=== PATIENT | male | born 1950 | race Hispanic/Latino ===

== ENCOUNTER 2017-08-12 20:27 | Inpatient (IN) | payer MEDICARE, BC ==
[2017-08-12 20:43] VITALS: BMI 28.1
--- NOTE | 2017-08-12 21:13 | ED PDOC ---
Arrival/HPI - General Chief Complaint: Trauma Time Seen by Provider: 08/12/17 20:35 Historian: Patient - History of Present Illness Narrative History of Present Illness (Text): 08/12/17 21:23 A 66 year old male, whose past medical history includes Crohn's disease, presents to the emergency department complaining of right hip pain s/p fall at home. Patient reports he was lifting his right leg from the garbage can and fell on his right side. Denies hitting his head. Denies any history of cardiac disease. Patient denies any b/l knee pain, ankle pain, rib pain, abdominal pain , or any other complaints at this time. Admits to drinking alcohol, last drink was today. PMD: Dr. Chahal Ortho: Dr. Vick Ditch Digger: Dr. Moreno Symptom Onset: Sudden Symptom Course: Unchanged Activities at Onset: Rest Context: Home Past Medical History - Provider Review Nursing Documentation Reviewed: Yes - Infectious Disease Hx of Infectious Diseases: None - Gastrointestinal Hx Gastrointestinal Disorders: Yes Other/Comment: crohn's. IBS - Psychiatric Hx Substance Use: No - Surgical History Hx Appendectomy: Yes - Anesthesia Hx Anesthesia: Yes Hx Anesthesia Reactions: No Hx Malignant Hyperthermia: No Family/Social History - Physician Review Nursing Documentation Reviewed: Yes Family/Social History: No Known Family HX Smoking Status: Never Smoked Hx Alcohol Use: Yes Frequency of alcohol use: Few days per week Hx Substance Use: No Allergies/Home Meds Allergies/Adverse Reactions: Allergies No Known Allergies Allergy (Verified 08/12/17 20:36) Home Medications: Home Meds Medication Instructions Recorded Confirmed Folic Acid [Folic Acid] 1 tab PO DAILY 08/12/17 08/12/17 Mercaptopurine [6-Mp] 2 tab PO DAILY 08/12/17 08/12/17 Mesalamine [Lialda] 4 tab PO DAILY 08/12/17 08/12/17 Review of Systems - Physician Review All systems were reviewed & negative as marked: Yes - Review of Systems Gastrointestinal: absent: Abdominal Pain Musculoskeletal: Other (right hip pain; no rib pain, no knee pain, no ankle pain ) Physical Exam - Physical Exam Narrative Physical Exam (Text): 08/12/17 21:16 Head: Atraumatic. Normocephalic. Eyes: PERRL. EOMI. Conjunctivae are not pale. ENT: Mucous membranes are moist and intact. Oropharynx is clear and symmetric. Neck: Supple. Full ROM. No JVD. No lymphadenopathy. Cardiovascular: Regular rate. Regular rhythm. No murmurs, rubs, or gallops. Distal pulses are 2+ and symmetric. Pulmonary/Chest: No evidence of respiratory distress. Clear to auscultation bilaterally. No wheezing, rales or rhonchi. Abdominal: Soft and non-distended. There is no tenderness. No rebound, guarding, or rigidity. No organomegaly. Good bowel sounds. Back: No CVA tenderness. Extremities: pain with palpation of right hip and with passive rotation of right hip Skin: Skin is warm and dry. No petechiae. No purpura. Neurological: Alert, awake, and oriented to person, place, time, and situation. Normal speech. Psychiatric: Good eye contact. Normal interaction, affect, and behavior. Vital Signs Reviewed: Yes Vital Signs Pulse Resp BP 08/12/17 22:52 82 18 08/12/17 22:21 84 16 135/70 Appearance: Positive for: Well-Appearing, Non-Toxic, Comfortable Pain Distress: Mild Mental Status: Positive for: Alert and Oriented X 3 Medical Decision Making ED Course and Treatment: 08/12/17 21:01 Impression: A 66 year old male with right hip pain s/p fall. Plan: -- EKG -- Radiology right hip -- chest xray -- labs -- Reassess and disposition Progress Notes: Patient with pain on palpation and ROM of hip. NV intact. Denies head injury. Denies chest pain or shortness of breath. Denies neck pain or back pain. Patient on examination had iv line established, pain meds ordered. Xray reveals right hip fracture. On re-evaluation, he is nv intact. Pain improved after morphine. Patient currently denies abdominal pain or any knee or ankle pain. Serial neuro exams he is intact. Case d/w Dr. Barry Chahal at 10:51, requests Dr. Duron for orthopedics. Will also consult Dr. Paramjit Moreno, his gi physician. Patient updated with treatment plan. - Lab Interpretations Lab Results: 08/12/17 21:30 08/12/17 21:30 Lab Results 08/12/17 21:30: Alcohol, Quantitative 80 H 08/12/17 21:30: PT 14.3 H, INR 1.25 H, APTT 30.7 08/12/17 21:30: Sodium 131 L, Potassium 4.0, Chloride 93 L, Carbon Dioxide 24, Anion Gap 18, BUN 14, Creatinine 0.8, Est GFR ( Amer) > 60, Est GFR (Non- Af Amer) > 60, Random Glucose 92, Calcium 9.4, Magnesium 1.8, Total Bilirubin 2.0 H, AST 31, ALT 30, Alkaline Phosphatase 50, Total Protein 6.9, Albumin 3.9, Globulin 3.0, Albumin/Globulin Ratio 1.3 08/12/17 21:30: WBC 11.6 H, RBC 3.88, Hgb 13.3 L, Hct 37.7 L, MCV 97.2, MCH 34.3 , MCHC 35.3, RDW 15.4 H, Plt Count 229, MPV 10.3, Gran % 87.0 H, Lymph % (Auto) 8.1 L, [place] % (Auto) 4.4, Eos % (Auto) 0.4 L, Baso % (Auto) 0.1, Gran # 10.05 H , Lymph # (Auto) 0.9 L, [place] # (Auto) 0.5, Eos # (Auto) 0.1, Baso # (Auto) 0.01 I have reviewed the lab results: Yes - RAD Interpretation Radiology Orders: 08/12/17 21:03 CHEST ONE VIEW [RAD] Stat 08/12/17 21:04 Hip Right [HIP MIN 2V W/ PELVIS RT] [RAD] Stat - EKG Interpretation EKG Interpretation (Text): 08/12/17 23:04 EKG normal sinus rhythm rate of [address] elevations Interpreted by ED Physician: Yes Type: 12 lead EKG - Medication Orders Current Medication Orders: Discontinued Medications Sodium Chloride (Sodium Chloride 0.9%) 500 mls @ 1,000 mls/hr IV .Q30M STA Stop: 08/12/17 22:48 Last Admin: 08/12/17 22:34 Dose: 1,000 mls/hr eMAR Start Stop Document 08/12/17 22:34 MS (Rec: 08/12/17 22:34 MS [facility] [id number]) Intravenous Solution Start Date 08/12/17 Start Time 22:34 Morphine Sulfate (Morphine) 2 mg IVP STAT STA Stop: 08/12/17 22:20 Last Admin: 08/12/17 22:34 Dose: 2 mg MAR Pain Assessment Document 08/12/17 22:34 MS (Rec: 08/12/17 22:34 MS [facility] [id number]) Pain Reassessment Is this a pain reassessment? No Sleep Is patient sleeping during reassessment? No Presence of Pain Presence of Pain Yes Pain Scale Used Pain Scale Used Numeric Location Pain Location Body Site Hip Description Description Constant Intensity of Pain at present 10 Pain Behavior Moaning Grasping Site IVP Administration Document 08/12/17 22:34 MS (Rec: 08/12/17 22:34 MS [facility] [id number]) Charges for Administration # of IVP Administrations 1 - Scribe Statement The provider has reviewed the documentation as recorded by the Hiren Christian Provider Scribe Attestation: All medical record entries made by the Scribe were at my direction and personally dictated by me. I have reviewed the chart and agree that the record accurately reflects my personal performance of the history, physical exam, medical decision making, and the department course for this patient. I have also personally directed, reviewed, and agree with the discharge instructions and disposition. Disposition/Present on Arrival - Present on Arrival Any Indicators Present on Arrival: No History of DVT/PE: No History of Uncontrolled Diabetes: No Urinary Catheter: No History of Decub. Ulcer: No History Surgical Site Infection Following: None - Disposition Have Diagnosis and Disposition been Completed?: Yes Diagnosis: Fracture of right hip Disposition: HOSPITALIZED Disposition Time: 22:52 Patient Plan: Admission, Telemetry Patient Problems: Current Active Problems Problem Status Onset Fracture of right hip Acute Condition: FAIR Referrals: Tirso HERMAN,Giovani Cummings MD [Primary Care Provider] - Follow up with primary Forms: [employer] ([place]ian)
[2017-08-12 21:49] LABS: BASO # 0.01 K/mm3 (0.0-2.0); BASO % 0.1 % (0.0-3.0); EOS # 0.1 (0.0-0.7); EOS % 0.4 % (1.5-5.0); GRAN # 10.05 (1.4-6.5); HEMOGLOBIN 13.3 g/dL (14.0-18.0); LYMPH # 0.9 (1.2-3.4); LYMPH % 8.1 % (22.0-35.0); MEAN CELL VOLUME 97.2 fl (80.0-105.0); MEAN CORPUSCULAR HEMOGLOBIN 34.3 pg (25.0-35.0); MEAN CORPUSCULAR HGB CONC 35.3 g/dl (31.0-37.0); MEAN PLATELET VOLUME 10.3 fl (7.0-11.0); MONO # 0.5 (0.1-0.6); MONO % 4.4 % (1.0-6.0); RBC 3.88 10^6/uL (3.5-6.1); RED CELL DISTRIBUTION WIDTH 15.4 % (11.5-14.5); WHITE BLOOD COUNT 11.6 10^3/ul (4.5-11.0)
[2017-08-12 21:52] LABS: ALB/GLOB RATIO 1.3 (1.1-1.8); ALBUMIN 3.9 g/dL (3.0-4.8); ALT/SGPT 30 U/L (7-56); AST/SGOT 31 U/L (17-59); BLOOD UREA NITROGEN 14 mg/dL (7-21); CALCIUM 9.4 mg/dL (8.4-10.5); GFR AFRICAN-AMERICAN > 60; GFR NON-AFRICAN AMERICAN > 60; INR 1.25 (0.93-1.08); MAGNESIUM 1.8 mg/dL (1.7-2.2); PARTIAL THROMBOPLASTIN TIME 30.7 Seconds (25.1-36.5); PROTHROMBIN TIME 14.3 SECONDS (9.4-12.5)
[2017-08-12] MEDS ORDERED: Morphine 2 mg/ml ISec IVP STA (22:19)
[2017-08-12] MEDS ORDERED: Sodium Chloride 0.9% 500 ML IV STA (22:19)
[2017-08-13] MEDS ORDERED: Dextrose 5%/0.45% NS 1,000 ML IV SCH (03:45)
[2017-08-13] MEDS ORDERED: Folic Acid 1 MG, Thiamine 100 MG, Multivitamin (MVI) 10 ML in Dextrose 5% In Water 1,00... IV SCH (04:00)
[2017-08-13] MEDS: Morphine 2 mg/ml ISec IVP PRN ×2 (04:17→08:51)
--- NOTE | 2017-08-13 04:59 | CP.PCM.PN ---
Subjective - Date & Time of Evaluation Date of Evaluation: 08/13/17 Time of Evaluation: 04:00 - Subjective Subjective: called by nurse pt new admission for rt hip fracture is vomiting . pt has hx of etoh . pt is also shaking. Objective - Vital Signs/Intake and Output Vital Signs (last 24 hours): Temp Pulse Resp BP Pulse Ox 97.9 F 95 H 16 137/83 98 08/13/17 01:16 08/13/17 03:01 08/13/17 03:01 08/13/17 03:01 08/13/17 03:01 - Medications Medications: Current Medications Dextrose/Sodium Chloride (Dextrose 5%/0.45% Ns 1000 Ml) 1,000 mls @ 50 mls/hr IV .Q20H [facility] Last Admin: 08/13/17 03:49 Dose: 50 mls/hr Folic Acid 1 mg/ Thiamine HCl 100 mg/ Multivitamins/Vitamin C 10 ml/ Dextrose 1 ,011.2 mls @ 100 mls/hr IV .Q10H7M [facility] Stop: 08/13/17 14:06 Morphine Sulfate (Morphine) 2 mg IVP Q4 PRN PRN Reason: Pain, severe (8-10) Last Admin: 08/13/17 04:17 Dose: 2 mg - Labs Labs: PT 14.3 SECONDS (9.4-12.5) H 08/12/17 21:30 INR 1.25 (0.93-1.08) H 08/12/17 21:30 APTT 30.7 Seconds (25.1-36.5) 08/12/17 21:30 - Constitutional Appears: No Acute Distress - Head Exam Head Exam: NORMOCEPHALIC - Eye Exam Eye Exam: Normal appearance Pupil Exam: PERRL - Neck Exam Neck Exam: Full ROM - Respiratory Exam Respiratory Exam: NORMAL BREATHING PATTERN - Cardiovascular Exam Cardiovascular Exam: RRR, +S1, +S2 - GI/Abdominal Exam GI & Abdominal Exam: Soft - Rectal Exam Rectal Exam: Deferred - Extremities Exam Additional comments: rt lower extremity reluctant to move. - Neurological Exam Neurological Exam: Awake, Oriented x3 - Psychiatric Exam Psychiatric exam: Anxious - Skin Skin Exam: Dry, Warm Assessment and Plan - Assessment and Plan (Free Text) Assessment: alcohol withdrawl .vomiting. rt hip fracture. Plan: zofran 4 mg x1. ativan ativan 1 mg x1. bana bag.
--- NOTE | 2017-08-13 09:46 | RAD ---
PROCEDURE: CHEST RADIOGRAPH, 1 VIEW HISTORY: possible hip fracture COMPARISON: None available. FINDINGS: LUNGS: Clear. PLEURA: No pneumothorax or pleural fluid seen. CARDIOVASCULAR: No radiographic findings to suggest acute or significant cardiovascular disease. OSSEOUS STRUCTURES: No significant abnormalities. VISUALIZED UPPER ABDOMEN: Normal. OTHER FINDINGS: None. IMPRESSION: No active disease.
--- NOTE | 2017-08-13 09:46 | RAD ---
PROCEDURE: Right hip HISTORY: right hip fracture COMPARISON: None TECHNIQUE: Standard protocol for this study/examination. FINDINGS: Inter trochanteric fracture. Avulsion of the greater trochanter is incompletely visualized. Preservation of femoral acetabular relationship on the right. No pelvic ring abnormalities. Left hip: No acute findings. IMPRESSION: Acute inter trochanteric fracture with avulsion of greater trochanter.
[2017-08-13] MEDS ORDERED: Propofol 10 mg/ml Inj (20 ML) ONE ×2 (10:45→10:47)
[2017-08-13] MEDS ORDERED: Midazolam 2 MG/2 ML VIAL ONE ×2 (10:57→11:49)
[2017-08-13] MEDS ORDERED: Neostigmine Methylsulfate 3mg/3ml Syringe IV ONE (11:48)
[2017-08-13] MEDS ORDERED: ePHEDrine 50 mg/ml Inj ONE (11:54)
[2017-08-13] MEDS ORDERED: HYDROmorphone 0.5 mg/0.5 ml ISec IVP PRN (12:27)
[2017-08-13] MEDS: HYDROmorphone 0.5 mg/0.5 ml ISec IVP PRN ×2 (13:27→16:57)
--- NOTE | 2017-08-13 13:29 | RAD ---
PROCEDURE: Fluoroscopy up to 1 hr. HISTORY: ORIF RT HIP COMPARISON: None TECHNIQUE: Standard protocol for this study/examination. FINDINGS: Total fluoroscopic time (continuous mode) utilized during the procedure: 44.9 seconds. Total exam DLP: 7.50 (mGy) IMPRESSION: Less than 1 hr fluoroscopic time utilized during performance of the procedure.
[2017-08-13 13:35] LABS: BASO # 0.01 K/mm3 (0.0-2.0); BASO % 0.2 % (0.0-3.0); EOS # 0.2 (0.0-0.7); EOS % 2.5 % (1.5-5.0); GRAN # 4.92 (1.4-6.5); GRAN % 76.4 % (50.0-68.0); HEMOGLOBIN 12.2 g/dL (14.0-18.0); LYMPH % 16.2 % (22.0-35.0); MEAN CORPUSCULAR HEMOGLOBIN 34.6 pg (25.0-35.0); MEAN CORPUSCULAR HGB CONC 35.3 g/dl (31.0-37.0); MEAN PLATELET VOLUME 10.6 fl (7.0-11.0); MONO # 0.3 (0.1-0.6); MONO % 4.7 % (1.0-6.0); RBC 3.53 10^6/uL (3.5-6.1); RED CELL DISTRIBUTION WIDTH 15.3 % (11.5-14.5); WHITE BLOOD COUNT 6.4 10^3/ul (4.5-11.0)
[2017-08-13] MEDS ORDERED: Multivitamin (MVI) 10 ML, Thiamine 100 MG, Folic Acid 1 MG in Sodium Chloride 0.9% 1,00... IV ONE (16:00)
[2017-08-13] MEDS: ceFAZolin 1 gm in NS 1 GM/100 ML BAG IVPB SCH ×2 (16:18→21:38)
--- NOTE | 2017-08-13 16:46 | CARD ---
APPROVED REPORT EKG Measurement Heart [id number] <Conclusion> Normal sinus rhythm Normal ECG
[2017-08-13] MEDS ORDERED: Pneumococcal 23-Valent Vaccine IM ONE (17:11)
[2017-08-13] MEDS ORDERED: Influenza Vaccine 60 mcg/0.5 mL SYR (4YR UP) IM ONE (17:11)
--- NOTE | 2017-08-13 20:57 | HP ---
HISTORY OF PRESENT ILLNESS: The patient is a 66 year old man with a past medical history of ulcerative colitis who presented to [facility] for evaluation of a sudden onset of right hip pain after sustaining a mechanical fall at home. The patient reports that he was in his usual state of health until the day of presentation to the ED when he was lifting his right leg into his garbage can so as to compress the garbage when he slipped and sustained a mechanical fall. The patient reports he felt a crack to his right hip with an immediate onset of sharp, stabbing pain and inability to bear weight. He called 911 and was brought to [facility] ED for evaluation where imaging studies demonstrated a right hip fracture with minimal displacement. He was then admitted for orthopedic repair. PAST MEDICAL HISTORY: As per HPI, also EtOH dependence. PAST SURGICAL HISTORY: Gastric biopsy, repair of detached retina and appendectomy. ALLERGIES: NKDA. MEDICATIONS: 6-mercaptopurine 50 mg 2 tablets p.o. daily, folic acid 1 mg p.o. daily, and Lialda 1.2 g 4 tablets p.o. daily. FAMILY HISTORY: Noncontributory. SOCIAL HISTORY: The patient denies any history of smoking or illicit drug abuse. He does report daily alcohol use consisting of 2-3 beers daily. REVIEW OF SYSTEMS: Negative for chest pain, palpitations, orthopnea, lower extremity edema, claudication, presyncope, or syncope. PHYSICAL EXAMINATION: VITAL SIGNS: Temperature 97.9, pulse 89, blood pressure 145/75, respiratory rate 16, and oxygen saturation 99% on room air. GENERAL: Mild distress secondary to right hip pain. HEENT: PERRL. EOMI. No scleral icterus. NECK: Supple. Full range of motion. LUNGS: Clear to auscultation. CARDIOVASCULAR: Regular rate and rhythm. Normal S1 and S2. ABDOMEN: Normoactive bowel sounds. Soft, nontender, and nondistended. EXTREMITIES: No edema. Decreased range of motion to right hip secondary to pain. NEUROLOGIC: Awake, alert, and oriented x3. No focal motor deficits. LABORATORY DATA: WBC 11.6 with 87% neutrophils, hemoglobin 13, hematocrit 37, and platelets 229. Sodium 131, potassium 4, chloride 93, bicarbonate 24, BUN 14, creatinine 0.8, and glucose 92. INR 1.25. Alcohol level 80. IMAGING STUDIES: 1. Chest x-ray demonstrates no acute pathology. 2. X-ray of the right hip demonstrates a minimally displaced fracture. DIAGNOSTIC STUDIES: EKG demonstrates normal sinus rhythm at 81 beats per minute with no ST-T changes. ASSESSMENT: The patient is a 66 year old man with a past medical history of ulcerative colitis who presented s/p mechanical fall at home with a sustained right hip fracture and is presently pending orthopedic repair. PLAN: 1. Acute fracture of the right hip. The patient has been evaluated by Dr. Grimes of Orthopedic Surgery. He is medically cleared and is an intermediate risk candidate for an intermediate risk procedure and may proceed to the operating room with no further cardiopulmonary workup. 2. Ulcerative colitis. We will resume the patient's outpatient regimen postoperatively. 3. EtOH dependence. We will start Librium 50mg p.o. q. 8 hours and continue banana bag. Will monitor closely for DT's. CODE STATUS: Full code. Giovani Chahal MD MTDAleksandar
[2017-08-14] MEDS: ceFAZolin 1 gm in NS 1 GM/100 ML BAG IVPB SCH ×3 (05:23→21:12)
[2017-08-14 06:44] LABS: HEMOGLOBIN 10.3 g/dL (14.0-18.0); MEAN CELL VOLUME 98.7 fl (80.0-105.0); MEAN CORPUSCULAR HEMOGLOBIN 34.3 pg (25.0-35.0); MEAN CORPUSCULAR HGB CONC 34.8 g/dl (31.0-37.0); MEAN PLATELET VOLUME 10.2 fl (7.0-11.0); RED CELL DISTRIBUTION WIDTH 15.6 % (11.5-14.5); WHITE BLOOD COUNT 4.3 10^3/ul (4.5-11.0)
[2017-08-14 06:54] LABS: ALB/GLOB RATIO 1.1 (1.1-1.8); ALT/SGPT 26 U/L (7-56); AST/SGOT 22 U/L (17-59); BLOOD UREA NITROGEN 9 mg/dL (7-21); CALCIUM 8.6 mg/dL (8.4-10.5); GFR AFRICAN-AMERICAN > 60; GFR NON-AFRICAN AMERICAN > 60
[2017-08-14] MEDS: Enoxaparin 30 mg Syringe SC SCH (09:00)
[2017-08-14] MEDS ORDERED: Enoxaparin 30 mg Syringe SC SCH ×2 (10:00)
[2017-08-14] MEDS: HYDROmorphone 0.5 mg/0.5 ml ISec IVP PRN ×3 (10:07→22:22)
[2017-08-14 12:54] LABS: BASO # 0.01 K/mm3 (0.0-2.0); BASO % 0.2 % (0.0-3.0); EOS # 0.3 (0.0-0.7); EOS % 4.6 % (1.5-5.0); GRAN # 4.15 (1.4-6.5); GRAN % 76.5 % (50.0-68.0); HEMOGLOBIN 10.9 g/dL (14.0-18.0); LYMPH # 0.8 (1.2-3.4); LYMPH % 14.8 % (22.0-35.0); MEAN CELL VOLUME 98.7 fl (80.0-105.0); MEAN CORPUSCULAR HEMOGLOBIN 34.2 pg (25.0-35.0); MEAN CORPUSCULAR HGB CONC 34.6 g/dl (31.0-37.0); MONO # 0.2 (0.1-0.6); MONO % 3.9 % (1.0-6.0); RBC 3.19 10^6/uL (3.5-6.1); RED CELL DISTRIBUTION WIDTH 15.6 % (11.5-14.5); WHITE BLOOD COUNT 5.4 10^3/ul (4.5-11.0)
--- NOTE | 2017-08-14 13:14 | PN ---
DATE: 08/14/2017 LOCATION: Room 275, bed 1. SUBJECTIVE: The patient is one day postop ORIF of his right intertroch fracture. He is resting and no complaint of undue pain. His hemoglobin postop is 10.2, hematocrit 29.6 which is stable. Wound is dry. We will get him out of bed and he could ambulate, weightbearing tolerance with a walker. Hopefully he will go to subacute rehab in few days and I will follow him there at the [facility]. Michele Grimes DO
--- NOTE | 2017-08-14 18:48 | PN ---
SUBJECTIVE: The patient was seen and examined at the bedside on the telemetry ghosh. No acute events overnight. He remains afebrile and hemodynamically stable and is doing well s/p right hip replacement secondary to an acute fracture. This morning he feels okay and states that his pain is controlled with his current analgesic regimen. He is looking forward to participate in PT and otherwise offers no complaints. OBJECTIVE: VITAL SIGNS: Temperature 98.7, pulse 96, blood pressure 129/77, respiratory rate 20, oxygen saturation 96% on room air. GENERAL: In no apparent distress. HEENT: PERRL. EOMI. No scleral icterus. No conjunctival pallor. NECK: Supple. Full range of motion. No JVD. No bruits. LUNGS: Clear to auscultation. CARDIOVASCULAR: Regular rate and rhythm. Normal S1 and S2. No murmurs, rubs , or gallop. ABDOMEN: Normoactive bowel sounds. Soft, nontender, and nondistended. EXTREMITIES: No edema. Surgical site at the right hip appears clean, dry, and intact. NEUROLOGIC: Awake, alert, and oriented x3. No focal motor deficits. LABORATORY DATA: WBC 5.4, hemoglobin 10.9, hematocrit 32, platelets 207. Sodium 131, potassium 4, chloride 99, bicarbonate 25, BUN 9, creatinine 0.6, glucose 100. ASSESSMENT: The patient is a 66 year old man with a past medical history of ulcerative colitis who presented s/p mechanical fall at home with sustained right hip fracture who is now s/p ORIF of right hip POD #1. PLAN: 1. Acute fracture of the right hip s/p ORIF POD #1. Input from Dr. Grimes noted and greatly appreciated. Continue with postoperative care as per Dr. Grimes. Encourage early ambulation. Continue with PT/OT. 2. Ulcerative colitis. We will resume the patient's outpatient regimen. 3. EtOH dependence. Patient remains hemodynamically stable and with no evidence of DT's. Continue Librium 50 mg p.o. q.8 hours and Ativan 1 mg IV q. 4 hours as needed. 4. Prophylaxis. GI prophylaxis is not indicated as patient is eating. Continue with Lovenox for DVT prophylaxis. CODE STATUS: Full code. Giovani Chahal MD [facility] # [id number] JONNY
[2017-08-15] MEDS: HYDROmorphone 0.5 mg/0.5 ml ISec IVP PRN ×3 (02:29→16:17)
[2017-08-15] MEDS: ceFAZolin 1 gm in NS 1 GM/100 ML BAG IVPB SCH ×2 (05:01→14:41)
[2017-08-15 06:17] VITALS: TEMP 98.6
[2017-08-15 07:10] LABS: BASO # 0.01 K/mm3 (0.0-2.0); BASO % 0.2 % (0.0-3.0); EOS # 0.3 (0.0-0.7); EOS % 7.7 % (1.5-5.0); GRAN # 2.82 (1.4-6.5); GRAN % 63.5 % (50.0-68.0); HEMOGLOBIN 10.1 g/dL (14.0-18.0); LYMPH % 22.7 % (22.0-35.0); MEAN CELL VOLUME 99.7 fl (80.0-105.0); MEAN CORPUSCULAR HEMOGLOBIN 33.9 pg (25.0-35.0); MEAN PLATELET VOLUME 10.2 fl (7.0-11.0); MONO # 0.3 (0.1-0.6); MONO % 5.9 % (1.0-6.0); RBC 2.98 10^6/uL (3.5-6.1); RED CELL DISTRIBUTION WIDTH 15.7 % (11.5-14.5); WHITE BLOOD COUNT 4.4 10^3/ul (4.5-11.0)
[2017-08-15 07:14] LABS: ALBUMIN 2.9 g/dL (3.0-4.8); ALT/SGPT 28 U/L (7-56); AST/SGOT 19 U/L (17-59); BLOOD UREA NITROGEN 11 mg/dL (7-21); CALCIUM 8.9 mg/dL (8.4-10.5); GFR AFRICAN-AMERICAN > 60; GFR NON-AFRICAN AMERICAN > 60
--- NOTE | 2017-08-15 08:29 | OP ---
PROCEDURE DATE: 08/13/2017 PREOPERATIVE DIAGNOSIS: Intertrochanteric fracture, right hip. POSTOPERATIVE DIAGNOSIS: Intertrochanteric fracture, right hip. PROCEDURE: Open reduction internal fixation with a [employer]omet Affixus nail that was 180 mm long x 11 mm wide, set at 125 degrees neck shaft angle. We put a lag screw in that was 110 mm long and a cortical screw which was 36mm long. TYPE OF ANESTHESIA: General endotracheal tube. DESCRIPTION OF PROCEDURE: The patient was taken to OR. The right hip was prepped and draped in sterile fashion, put on the fracture table. X-rays showed good position while we did traction and rotation, and when he had his antibiotics, we did a 2-cm incision just proximal to the greater trochanter by 4 cm, went down to the greater trochanter with a threaded tip awl, a guidewire was inserted through the medial portion of the trochanter and then past the fracture into the shaft about 7 cm. Then we did overream the guidewire with a 16 mm reamer, and then inserted the 180 mm long haylee that was 11 mm wide, set it at 125 degrees with the jig still on as an outrigger that allowed us to make a passage into the femoral head and neck, by making a second incision in line with the guidewire. Then we inserted the lag screw in after we did the appropriate reaming and found it to be in good position Traction was reduced and then the distal haylee was locked with a cortical screw 38 mm long. The 3 wounds were irrigated with normal saline and closed in layers starting 0 Vicryl for the deep layer, 2-0 subcutaneous tissue and skin with stainless steel floyd. The patient was taken to recovery room in good condition. Michele Grimes DO JONNY
--- NOTE | 2017-08-15 08:37 | CON ---
DATE: 08/13/2017 HISTORY OF PRESENT ILLNESS: A 66-year-old male who slipped and fell at home, fractured his right hip on 08/12/2017, seen in the emergency room on 08/13/2017 with intertrochanteric fracture with subtrochanteric extension of his right hip and will need for open reduction and internal fixation to stabilize with a peritroch haylee. Hopefully, we can do it today when he is medically cleared and then he could be able to get up out of bed and recover quicker. FINAL DIAGNOSIS: Intertrochanteric fracture of right hip with subtrochanteric extension. PLAN: To do an open reduction and internal fixation when medically clear. Hopefully, we could do it today, 08/13/2017. Michele Grimes DO
[2017-08-15] MEDS: Enoxaparin 30 mg Syringe SC SCH (09:20)
--- NOTE | 2017-08-15 12:17 | PN ---
SUBJECTIVE: The patient was seen and examined at bedside on the telemetry ghosh. No acute events overnight. He remains afebrile and hemodynamically stable. He is doing well postoperatively following his ORIF of his right hip and is pending placement to a rehab facility. OBJECTIVE: VITAL SIGNS: Temperature 98.6, pulse 76, blood pressure 127/64, respiratory rate 18, oxygen saturation 96% on room air. GENERAL: No apparent distress. HEENT: PERRL, EOMI. No scleral icterus. Mild conjunctival pallor is noted. NECK: Supple with full range of motion. No JVD. No bruits. LUNGS: Clear to auscultation. CARDIOVASCULAR: Regular rate and rhythm. Normal S1 and S2. No murmurs, rubs, or gallops. ABDOMEN: Normoactive active bowel sounds, soft, nontender, nondistended. EXTREMITIES: No edema. Surgical site at the right hip appears clean, dry, and intact. NEUROLOGIC: Awake, alert, and oriented x3. No focal motor deficits. LABORATORY DATA: WBC 4.4, hemoglobin 10, hematocrit 29, and platelets 177. Chemistry repeated and unremarkable. ASSESSMENT: The patient is a 66 year old man with a past medical history of ulcerative colitis who presented s/p mechanical fall at home with sustained right hip fracture who is now s/p ORIF of the right hip POD #2. PLAN: 1. Acute fracture of the right hip s/p ORIF POD #2. Continue with post operative care as per Dr. Grimes. Continue PT/OT. The patient is pending transfer to a rehab facility. 2. Ulcerative colitis. 3. EtOH dependence. Patient remains hemodynamically stable with no evidence of DTs. Continue Librium 50 mg p.o. q. 8 hours and Ativan 1 mg IV q. 4 hours as needed. 4. Prophylaxis: GI prophylaxis not indicated as patient is eating. Continue Lovenox for DVT prophylaxis. CODE STATUS: Full code. Giovani Chahal MD JONNY
--- NOTE | 2017-08-15 12:43 | PN ---
DATE: He looks fine. His hemoglobin and hematocrit is stable. He has tolerable amount of pain. Wound is dry. We will get him up out of bed and start ambulation, also go to subacute rehab so that I could follow him there. He could put partial weight on the right hip and needs strict supervision as he may tend to fall, so he has a high risk of fall. Michele Grimes DO MTDD
[2017-08-15 13:10] LABS: BASO # 0.02 K/mm3 (0.0-2.0); BASO % 0.5 % (0.0-3.0); EOS # 0.3 (0.0-0.7); EOS % 7.5 % (1.5-5.0); GRAN # 2.6 (1.4-6.5); GRAN % 66.8 % (50.0-68.0); HEMOGLOBIN 10.1 g/dL (14.0-18.0); LYMPH # 0.8 (1.2-3.4); LYMPH % 19.8 % (22.0-35.0); MEAN CORPUSCULAR HEMOGLOBIN 34.6 pg (25.0-35.0); MEAN CORPUSCULAR HGB CONC 34.9 g/dl (31.0-37.0); MONO # 0.2 (0.1-0.6); MONO % 5.4 % (1.0-6.0); RBC 2.92 10^6/uL (3.5-6.1); RED CELL DISTRIBUTION WIDTH 15.4 % (11.5-14.5); WHITE BLOOD COUNT 3.9 10^3/ul (4.5-11.0)
--- NOTE | 2017-08-15 18:24 | OP ---
that PROCEDURE DATE: 08/13/2017 The patient is a 66-year-old male with an intertrochanteric fracture of right hip, sustained at home when he fell. PREOPERATIVE DIAGNOSIS: Intertrochanteric fracture, right hip. POSTOPERATIVE DIAGNOSIS: Intertrochanteric fracture, right hip. PROCEDURE: Open reduction and internal fixation with peritrochanteric haylee, AFFIXUS nail. ANESTHESIA: Endotracheal tube. DESCRIPTION OF PROCEDURE: Patient was taken to the OR, right hip prepped and draped in sterile fashion on the fracture table. X-ray showed that we could reduce the fracture with gentle traction and rotation. First incision proximal to the greater trochanter that incision was 2 cm long going down to the greater trochanter entering that with a beaded tip guidewire down the shaft of the femur and then reamed with a 17-mm reamer and we put the 180 mm long nail down the shaft, locked it to the femoral head and neck with a second incision in line with the head and neck with the help of a jig which we put in the guidewire. Then, we over-reamed the guidewire to insert the 105 mm long lag screw. Then, we locked it distally with a third incision for locking screw, which was done with stab wound. X-ray showed good position of the fracture and the hardware. The wounds were irrigated and closed with Vicryl for the deep layers, nylon for the skin, and sent to recovery room in good condition. Michele Grimes DO MTDAleksandar
[2017-08-15 19:58] VITALS: BP 142/78; PULSE 95; RESP 20; O2SAT 95
--- NOTE | 2017-08-17 05:54 | DS ---
ADMITTING DIAGNOSIS: Acute fracture of the right greater trochanter. DISCHARGE DIAGNOSES: Acute intertrochanteric fracture, with avulsion of the greater trochanter on the right, status post open reduction and internal fixation. SECONDARY DIAGNOSES: Ulcerative colitis, alcohol dependence. CONSULTATIONS: Michele Grimes DO (orthopedic surgery). PROCEDURE: ORIF of the right hip. IMAGING STUDIES: 1. Chest x-ray demonstrated no acute pathology. 2. Pelvic x-ray demonstrated acute intertrochanteric fracture with avulsion of the greater trochanter on the right. HISTORY OF PRESENT ILLNESS: The patient is a 66-year-old man with a past medical history of ulcerative colitis, who presented to [facility] for evaluation of a sudden onset of right hip pain after sustaining a mechanical fall at home. The patient reports that he was in his usual state of health until the day of presentation to the ED, when he was lifting his right leg into a garbage can so as to compress the garbage, when he slipped and sustained mechanical fall. He reported that he immediately felt a crack to his right hip with a sudden onset of sharp pain and inability to bear weight. He called 911 and was brought to the [facility] ED for evaluation where imaging studies demonstrated a right hip fracture with minimal displacement. Subsequently admitted to the general medical ghosh for orthopedic evaluation. HOSPITAL COURSE: The patient was promptly evaluated by Dr. Grimes of Orthopedic Surgery, and after being medically cleared, he was taken to the OR, where he underwent successful ORIF of the right hip. The patient's postoperative course was uncomplicated. He was evaluated by Physical Therapy and recommendations were made for acute rehab. After discussing the disposition options with both the patient and his family, he had opted for rehabilitation at [facility], and by hospital day #2, he was deemed stable for discharge to home. CONDITION: Fair, improved. DISPOSITION: [facility] in [place]. DISCHARGE INSTRUCTIONS: Patient was advised to adhere to postoperative instructions as per Dr. Grimes. He was also advised that if he has any development of lower extremity edema, chest pain, palpitations or dyspnea, to notify the physicians at [facility] immediately. FOLLOWUP: The patient is to follow up with his PMD within 1 week of discharge from [facility]. The patient is to follow up with Dr. Grimes as scheduled. Giovani Chahal MD [facility] # [id number]
== END 2017-08-15 21:46 | DRG 481 ==
LOC: ED 20:27 → ERH 22:53 → 2RSO 08-13 14:22 → 5RNO 08-15 12:04
PROVIDERS: ADMIT Internal Medicine; ATTEND Internal Medicine
PROC: 0QS604Z Reposition Right Upper Femur with Internal Fixation Device, Open Approach (ICD-10-PCS; principal; 2017-08-13 11:40)
DX: S72.141A Displaced intertrochanteric fracture of right femur, initial encounter for closed fracture (principal); F10.239 Alcohol dependence with withdrawal, unspecified; K51.90 Ulcerative colitis, unspecified, without complications; W01.0XXA Fall on same level from slipping, tripping and stumbling without subsequent striking against object, initial encounter; Z91.81 History of falling; Y92.009 Unspecified place in unspecified non-institutional (private) residence as the place of occurrence of the external cause